=== PATIENT | female | born 1965 | race Hispanic/Latino ===

== ENCOUNTER 2020-12-24 19:34 | Observation (INO) | payer MEDICARE, MEDICAID ==
[2020-12-24 19:57] LABS: #Eosinphils 0.1 10x3/uL (0.0-0.5); #Monocytes 0.5 10x3/uL (0.0-1.1); %Basophils 0.3 % (0.0-2.0); %Lymphocytes 32.8 % (18.0-47.0); %Monocytes 6.9 % (0.0-10.0); %Neutrophils 57.6 % (40.0-75.0); Hemoglobin 12.5 g/dL (12.0-15.5); Mean Corpuscular HGB CONC 31.4 g/dL (32.0-36.0); Mean Platelet Volume 9.3 fl (7.4-10.4); Platelet Count 280 10x3/uL (150-450); RBC Distribution Width 13.2 % (11.5-14.5); Red Blood Cell (RBC) Count 4.63 10x6/uL (3.90-5.03)
[2020-12-24] MEDS ORDERED: Aspirin 325 MG TAB ONE (20:00)
[2020-12-24] MEDS ORDERED: Nitroglycerin 0.4 MG TAB 1 EACH ONE (20:00)
[2020-12-24 20:13] LABS: ALT (SGPT) 29 U/L (8-55); AST (SGOT) 21 U/L (5-34); Albumin 4.5 g/dL (3.5-5.0); Alkaline Phosphatase 117 U/L (40-110); Anion Gap 12 mmol/L (10-20); BUN (Urea Nitrogen) 20 mg/dL (9.8-20.1); Bilirubin, Total 0.3 mg/dL (0.2-1.2); Calc. Creatinine Clearance 0 mL/min (70-130); Calcium 9.6 mg/dL (7.8-10.44); Carbon Dioxide 26 mmol/L (22-29); Chloride 104 mmol/L (98-107); Globulin 3.4 g/dL (2.4-3.5); Glucose 100 mg/dL (70-105); Potassium 3.8 mmol/L (3.5-5.1); Protein, Total 7.9 g/dL (6.0-8.3); Sodium 138 mmol/L (136-145)
[2020-12-24] MEDS ORDERED: Nitroglycerin 0.4 MG TAB (25 Tab Bottle) SL PRN (21:29)
[2020-12-24] MEDS ORDERED: Metoprolol Tartrate 25 MG TAB PO SCH ×2 (21:30→21:36)
[2020-12-24] MEDS ORDERED: Nitroglycerin 2% Ointment 1 INCH/1 GM Packet TOP SCH (22:00)
[2020-12-24 22:26] VITALS: BMI 33.7
[2020-12-24] MEDS: Nitroglycerin 2% Ointment 1 INCH/1 GM Packet TOP SCH (23:10)
[2020-12-24] MEDS ORDERED: tiZANidine HCl 4 MG TAB PO SCH (23:15)
[2020-12-24 23:49] LABS: Troponin I Less than 0.010 ng/mL (< 0.028)
[2020-12-25 06:59] LABS: #Eosinphils 0.2 10x3/uL (0.0-0.5); #Monocytes 0.6 10x3/uL (0.0-1.1); #Neutrophils 3.3 10x3/uL (1.5-8.4); %Basophils 0.3 % (0.0-2.0); %Eosinophils 2.5 % (0.0-6.0); %Lymphocytes 36.7 % (18.0-47.0); %Monocytes 8.8 % (0.0-10.0); %Neutrophils 51.4 % (40.0-75.0); Hemoglobin 11.9 g/dL (12.0-15.5); Mean Corpuscular HGB CONC 31.3 g/dL (32.0-36.0); Mean Corpuscular Hemoglobin 27.4 pg (27.0-33.0); Mean Corpuscular Volume 87.4 fl (81.6-98.3); Mean Platelet Volume 9.5 fl (7.4-10.4); Platelet Count 244 10x3/uL (150-450); RBC Distribution Width 13.1 % (11.5-14.5); Red Blood Cell (RBC) Count 4.35 10x6/uL (3.90-5.03); White Blood Cell (WBC) Count 6.4 10x3/uL (3.5-10.5)
[2020-12-25] MEDS: Nitroglycerin 2% Ointment 1 INCH/1 GM Packet TOP SCH ×3 (07:10→22:00)
[2020-12-25 07:11] LABS: Anion Gap 13 mmol/L (10-20); BUN (Urea Nitrogen) 18 mg/dL (9.8-20.1); Calc. Creatinine Clearance 129 mL/min (70-130); Carbon Dioxide 22 mmol/L (22-29); Cardiac Risk 4.5 (Less than 4.5); Chloride 108 mmol/L (98-107); Cholesterol 175 mg/dl (< 200 Desired); Glucose 92 mg/dL (70-105); HDL Cholesterol 39 mg/dL (>60 Neg Risk); LDL Cholesterol, Calculated 110 mg/dL; Magnesium 1.9 mg/dL (1.6-2.6); Potassium 3.9 mmol/L (3.5-5.1); Sodium 139 mmol/L (136-145); Triglycerides 130 mg/dL (Less than 150)
[2020-12-25 07:13] LABS: Troponin I Less than 0.010 ng/mL (< 0.028)
[2020-12-25] MEDS ORDERED: lamoTRIgine 100 MG TAB PO SCH (09:00)
[2020-12-25] MEDS ORDERED: Metoprolol Tartrate 25 MG TAB PO SCH (09:00)
[2020-12-25] MEDS: Bupropion 150 MG XL TAB PO SCH (10:13)
[2020-12-25] MEDS: Enoxaparin Sodium 40 MG/0.4 ML SYRINGE SC SCH (10:13)
[2020-12-25] MEDS: Metoprolol Tartrate 25 MG TAB PO SCH ×2 (10:13→21:24)
[2020-12-25] MEDS: DULoxetine 30 MG CAP PO SCH (10:14)
[2020-12-25] MEDS: Cholecalciferol 1,000 UNITS (25 MCG) TAB PO SCH (10:14)
[2020-12-25] MEDS: Lisinopril 10 MG TAB PO SCH (10:14)
[2020-12-25] MEDS: Hydrochlorothiazide 25 MG TAB PO SCH (10:14)
[2020-12-25] MEDS: Aspirin Chewable 81 MG TAB PO SCH (10:14)
[2020-12-25] MEDS ORDERED: lamoTRIgine 25 MG TAB PO SCH (10:45)
[2020-12-25 15:50] LABS: SARS-CoV-2 PCR by NAA Not Detected (NotDetected)
[2020-12-25] MEDS ORDERED: tiZANidine HCl 4 MG TAB PO SCH ×2 (21:00)
[2020-12-26] MEDS: Nitroglycerin 2% Ointment 1 INCH/1 GM Packet TOP SCH (06:19)
[2020-12-26 08:15] VITALS: TEMP 97.7
[2020-12-26] MEDS: Bupropion 150 MG XL TAB PO SCH (08:51)
[2020-12-26] MEDS: Cholecalciferol 1,000 UNITS (25 MCG) TAB PO SCH (08:51)
[2020-12-26] MEDS: Aspirin Chewable 81 MG TAB PO SCH (08:51)
[2020-12-26] MEDS: Hydrochlorothiazide 25 MG TAB PO SCH (08:52)
[2020-12-26] MEDS: Enoxaparin Sodium 40 MG/0.4 ML SYRINGE SC SCH (08:52)
[2020-12-26] MEDS: DULoxetine 30 MG CAP PO SCH (08:52)
[2020-12-26] MEDS: Metoprolol Tartrate 25 MG TAB PO SCH (08:52)
[2020-12-26] MEDS: Lisinopril 10 MG TAB PO SCH (08:52)
[2020-12-26 08:53] VITALS: BP 123/78
[2020-12-26] MEDS ORDERED: lamoTRIgine 25 MG TAB PO SCH (09:00)
== END 2020-12-26 09:14 | disposition home or self-care (01) ==
LOC: CSHERS 19:34 → CSHTELE 21:45
PROVIDERS: ADMIT Family Medicine; ATTEND Internal Medicine
DX: R07.9 Chest pain, unspecified (principal); I10 Essential (primary) hypertension; E66.9 Obesity, unspecified; Z68.35 Body mass index [BMI] 35.0-35.9, adult; M06.9 Rheumatoid arthritis, unspecified; Z79.899 Other long term (current) drug therapy; Z90.710 Acquired absence of both cervix and uterus; Z20.822 Contact with and (suspected) exposure to COVID-19
CPT/HCPCS: 71045; 80048; 80053; 80061; 83690; 83735; 84484 ×3; 85025 ×2; 93005 ×2; 93306; 96372; 99285; G0378 ×3; U0003; U0005; 36415; 87635; 93010; J1650

== ENCOUNTER 2023-07-26 09:07 | Emergency (ER) | payer MEDICARE, MEDICAID ==
[2023-07-26] MEDS ORDERED: predniSONE 20 MG TAB ONE (09:42)
== END 2023-07-26 09:45 | disposition home or self-care (01) ==
LOC: CSHERS 09:07
DX: M06.862 Other specified rheumatoid arthritis, left knee (principal); R22.32 Localized swelling, mass and lump, left upper limb
CPT/HCPCS: 99283; J7512